=== PATIENT | female | born 1950 | race Caucasian/White ===

== ENCOUNTER 2021-06-24 00:28 | Day surgery (SDC) | payer MEDICARE, OTHER, SELFPAY ==
[2021-06-11 14:14] VITALS: BMI 26.2
--- NOTE | 2021-06-23 10:59 | WPDANESEPPF ---
Anes - Initial Pre Proc Eval Procedure: Operation Date: 06/24/21 10:30 Proposed Procedures p Screening Colonoscopy - Amador Vo MD Date/Time: 06/23/21 10:59 Surgeon: Amador Vo MD Pre Op Diagnosis: neoplasm screening Patient Data Age: 70 Gender: F Height: 1.7 m Weight: 76 kg Allergies Allergy/AdvReac Type Severity Reaction Status Date / Time poison carmelita extract Allergy Hives Verified 06/24/21 09:18 frog legs Allergy Hives Uncoded 06/24/21 09:18 Home Medications Medication Instructions Recorded Confirmed Type No Home Medications 06/11/21 06/11/21 History Patient hx anesthesia problems: none Family hx anesthesia problems: none Results Review: All pre-operative results and documents have been reviewed as part of the pre-operative evaluation. [facility] Family History Family History Brother Family history of malignant neoplasm of bone Social History Social History Smoking status: Never smoker Alcohol intake: current Drinks per week: 2 Substance use type: does not use Living arrangements: with family Spiritual care concerns: No Anes - Eval Final PreProcedure Day of Procedure 06/23/21 10:59 Patient weight: overweight Heart: regular rate and rhythm Lungs: clear to auscultation and normal air movement Airway: Mallampati scale class II Neurological: alert and oriented Last oral intake: >/= 8 hours ASA classification: II Emergent: no Anesthetic plan: proceed Anesthesia type and monitoring: general GIVS and standard monitoring Results Review: All pre-operative results and documents have been reviewed as part of the pre-operative evaluation. Informed Consent: The patient's anesthetic plan and its attendant risks and benefits were discussed with the patient/family/POA. Questions were solicited and answers provided to the satisfaction of the patient/family/POA.
--- NOTE | 2021-06-24 08:28 | PM.HPGS ---
History of Present Illness History of Present Illness Consent: Risks, benefits, and alternatives have been discussed and questions answered. Patient agrees to proceed with procedure. Chief complaint: neoplasm screening Narrative: Maulik Pop is a 70 year old female Referred for colon cancer screening. Review of Systems Review of Systems: All systems reviewed & are unremarkable except as noted in HPI and below PMFSH Family History Family History Brother Family history of malignant neoplasm of bone Social History Social History Smoking status: Never smoker Alcohol intake: current Drinks per week: 2 Substance use type: does not use Living arrangements: with family Spiritual care concerns: No Meds Home Medications and Allergies Home Medications Medication Instructions Recorded Confirmed Type No Home Medications 06/11/21 06/11/21 History Allergies Allergy/AdvReac Type Severity Reaction Status Date / Time poison carmelita extract Allergy Hives Verified 06/11/21 14:13 frog legs Allergy Hives Uncoded 06/11/21 14:12 Exam Resp: Auscultation: clear to auscultation bilaterally Cardio: Rate: regular rate Rhythm: regular rhythm GI: GI Palp: Yes Soft to palpation and No Tenderness to palpation present (GI) Assessment and Plan Assessment and plan (1) Colon cancer screening: Code(s): Z12.11 - Encounter for screening for malignant neoplasm of colon Status: Acute Assessment and Plan: Colonoscopy with possible biopsy or polypectomy or cautery or injection of substances.
[2021-06-24 09:19] VITALS: BP 153/76; PULSE 67; RESP 18; TEMP 36.5; O2SAT 99
[2021-06-24] MEDS: LACTATED RINGERS 1,000 ML 150 ML IV CONT (09:30)
--- NOTE | 2021-06-24 09:57 | P.PNAN_ITS ---
Anes - Initial Pre Proc Eval Procedure: Operation Date: 06/24/21 10:30 Proposed Procedures p Screening Colonoscopy - Amador Vo MD Date/Time: 06/24/21 09:57 Surgeon: Amador Vo MD Pre Op Diagnosis: neoplasm screening Patient Data Age: 70 Gender: F Height: 1.7 m Weight: 76.6 kg Last Vital Signs Temp 97.7 F 06/24/21 09:19 Pulse 67 06/24/21 09:19 Resp 18 06/24/21 09:19 BP 153/76 H 06/24/21 09:19 Pulse Ox 99 06/24/21 09:19 Allergies Allergy/AdvReac Type Severity Reaction Status Date / Time poison camrelita extract Allergy Hives Verified 06/24/21 09:18 frog legs Allergy Hives Uncoded 06/24/21 09:18 Home Medications Medication Instructions Recorded Confirmed Type No Home Medications 06/11/21 06/11/21 History Patient hx anesthesia problems: none Family hx anesthesia problems: none Results Review: All pre-operative results and documents have been reviewed as part of the pre-operative evaluation. [facility] Family History Family History Brother Family history of malignant neoplasm of bone Social History Social History Smoking status: Never smoker Alcohol intake: current Drinks per week: 2 Substance use type: does not use Living arrangements: with family Spiritual care concerns: No Anes - Eval Final PreProcedure Day of Procedure 06/24/21 09:57 Patient weight: overweight Heart: regular rate and rhythm (MVP) Lungs: clear to auscultation Airway: Mallampati scale class 1 Neurological: alert and oriented Last oral intake: >/= 8 hours ASA classification: II Emergent: no Anesthetic plan: proceed Anesthesia type and monitoring: general GIVS and standard monitoring Other findings: H/O MVP Results Review: All pre-operative results and documents have been reviewed as part of the pre-operative evaluation. Informed Consent: The patient's anesthetic plan and its attendant risks and benefits were discussed with the patient/family/POA. Questions were solicited and answers provided to the satisfaction of the patient/family/POA.
[2021-06-24 10:24] VITALS: BP 105/83; PULSE 66; RESP 22; O2SAT 100
[2021-06-24 10:34] VITALS: BP 149/78; PULSE 66; RESP 17; O2SAT 99
[2021-06-24 10:44] VITALS: BP 177/93; PULSE 61; RESP 19; O2SAT 100
== END 2021-06-24 10:48 | disposition home or self-care (01) ==
PROVIDERS: PCP Nurse Practitioner Family; Visit Provider Internal Medicine Gastroenterology
PROC: 0DJD8ZZ Inspection of Lower Intestinal Tract, Via Natural or Artificial Opening Endoscopic (ICD-10-PCS; CPT 45378; principal; 2021-06-24 10:30)
DX: Z12.11 Encounter for screening for malignant neoplasm of colon (principal); K57.30 Diverticulosis of large intestine without perforation or abscess without bleeding
CPT/HCPCS: G0105; J2704; J7120